=== PATIENT | female | born 1990 | race African-American/Black ===

== ENCOUNTER 2019-01-16 21:49 | Emergency (ER) | payer OTHER ==
[~2019-01-16] VITALS: Ht 160 cm; Wt 53.0 kg
[2019-01-16 21:51] VITALS: Ht 160 cm; Wt 53.0 kg
[2019-01-16] MEDS ORDERED: ONDANSETRON 4 MG INJ IV STA (22:28)
[2019-01-16] MEDS ORDERED: SOD CHLORIDE 0.9% 1,000 ML IV STA (22:28)
[2019-01-16] MEDS ORDERED: KETOROLAC 30 MG INJ IV STA (22:28)
[2019-01-16] MEDS ORDERED: IOHEXOL 300MG/ML 150 ML BTL ONE (23:53)
[2019-01-16] MEDS ORDERED: SOD CHLORIDE 0.9% 100 ML ONE (23:53)
[2019-01-17] MEDS ORDERED: METR500T PO (01:58)
[2019-01-17] MEDS ORDERED: ONDA4TAB14 PO (01:58)
[2019-01-17] MEDS ORDERED: CIPR500T4 PO (01:58)
[2019-01-17 02:48] VITALS: BP 96/56; PULSE 63; RESP 18
--- NOTE | 2019-01-17 03:06 | ERD ---
ER Documentation Chief Complaint Chief Complaint RLQ pain x 2 days denies n/v/d HPI 28-year-old female presenting with lower pelvic pain x2 days. No nausea vomiting or diarrhea. No change in urination. No fevers. Has not taken me dications for symptoms. Denies chest pain or shortness of breath. No vomiting. Denies other medical problems. NKDA. Surgical history denies. Social history denies ROS All systems reviewed and are negative except as per history of present illness. Medications Home Meds Active Scripts Ondansetron (Ondansetron Odt) 4 Mg Tab.rapdis, 4 MG PO Q6H PRN for NAUSEA AND/OR VOMITING, #10 TAB Prov:JD HENRIQUEZ PA-C 01/17/19 Metronidazole* (Flagyl*) 500 Mg Tablet, 500 MG PO TID for 7 Days, TAB Prov:JD HENRIQUEZ PA-C 01/17/19 Ciprofloxacin Hcl* (Ciprofloxacin Hcl*) 500 Mg Tablet, 500 MG PO BID for 7 Days, TAB Prov:JD HENRIQUEZ PA-C 01/17/19 Allergies Allergies: Coded Allergies: No Known Allergy (Unverified , 01/16/19) PMhx/Soc Medical and Surgical Hx: pt denies Medical Hx, pt denies Surgical Hx Hx Miscellaneous Medical Probl: No Hx Alcohol Use: No Hx Substance Use: No Hx Tobacco Use: No Smoking Status: Never smoker FmHx Family History: No diabetes, No coronary disease, No other Physical Exam Vitals Vital Signs Date Temp Pulse Resp B/P (MAP) Pulse Ox O2 O2 Flow FiO2 Time Delivery Rate 01/17/19 97.7 63 18 96/56 (69) 99 02:48 01/16/19 97.9 54 16 121/58 100 21:51 (79) Physical Exam GENERAL: The patient is well-appearing, well-nourished, in no acute distress HEENT: Atraumatic. Conjunctivae are pink. Pupils equal, round, and reactive to light. There is no scleral icterus. Tympanic membranes clear bilaterally. Oropharynx clear. NECK: C-spine is soft and supple. There is no meningismus. There is no cervical lymphadenopathy. CHEST: Clear to auscultation bilaterally. There are no rales, wheezes or rhonchi. HEART: Regular rate and rhythm. No murmurs, clicks, rubs or gallops. ABDOMEN: Normal active bowel sounds. No distention. No organomegaly. Questionable tenderness palpation in the right lower quadrant. Result Diagram: 01/16/19224401/16/192244 Results 24 hrs Laboratory Tests Test 01/16/19 22:45 01/16/19 22:59 White Blood Count 9.9 10^3/ul Red Blood Count 5.13 10^6/ul Hemoglobin 13.6 g/dl Hematocrit 41.5 % Mean Corpuscular Volume 80.9 fl Mean Corpuscular Hemoglobin 26.5 pg Mean Corpuscular Hemoglobin Concent 32.8 g/dl Red Cell Distribution Width 12.9 % Platelet Count 307 10^3/UL Mean Platelet Volume 10.7 fl Immature Granulocytes % 0.300 % Neutrophils % 63.3 % Lymphocytes % 26.4 % Monocytes % 7.7 % Eosinophils % 1.8 % Basophils % 0.5 % Nucleated Red Blood Cells % 0.0 /100WBC Immature Granulocytes # 0.030 10^3/ul Neutrophils # 6.3 10^3/ul Lymphocytes # 2.6 10^3/ul Monocytes # 0.8 10^3/ul Eosinophils # 0.2 10^3/ul Basophils # 0.1 10^3/ul Nucleated Red Blood Cells # 0.0 10^3/ul Urine Color YELLOW Urine Clarity SLIGHTLY CLOUDY Urine pH 8.0 Urine Specific [place] 1.008 Urine Ketones NEGATIVE mg/dL Urine Nitrite NEGATIVE mg/dL Urine Bilirubin NEGATIVE mg/dL Urine Urobilinogen NEGATIVE mg/dL Urine Leukocyte Esterase 1+ Barbara/ul Urine Microscopic RBC 9 /HPF Urine Microscopic WBC 25 /HPF Urine Squamous Epithelial Cells FEW /HPF Urine Bacteria FEW /HPF Urine Hemoglobin 1+ mg/dL Urine Glucose NEGATIVE mg/dL Urine Total Protein NEGATIVE mg/dl Sodium Level 141 mmol/L Potassium Level 4.1 mmol/L Chloride Level 104 mmol/L Carbon Dioxide Level 27 mmol/L Anion Gap 10 Blood Urea Nitrogen 12 mg/dl Creatinine 0.71 mg/dl Est Glomerular Filtrat Rate mL/min > 60 mL/min Glucose Level 93 mg/dl Calcium Level 9.9 mg/dl Total Bilirubin 0.8 mg/dl Direct Bilirubin 0.00 mg/dl Indirect Bilirubin 0.8 mg/dl Aspartate Amino Transf (AST/SGOT) 24 IU/L Alanine Aminotransferase (ALT/SGPT) 22 IU/L Alkaline Phosphatase 62 IU/L Total Protein 8.3 g/dl Albumin 4.6 g/dl Globulin 3.70 g/dl Albumin/Globulin Ratio 1.24 Lipase 126 U/L POC Beta HCG, Qualitative NEGATIVE Current Medications Medications Dose Sig/Ji Start Time Status Last (Trade) Ordered Route PRN Stop Time Admin Dose Reason Admin Sodium 1,000 ml @ Q1H STAT 01/16/19 DC 01/16/19 Chloride 1,000 mls/hr IV 22:28 01/16/19 23:06 23:27 Ondansetron 4 mg ONCE STAT 01/16/19 DC 01/16/19 HCl (Zofran IV 22:28 01/16/19 23:05 Inj) 22:30 Ketorolac 30 mg ONCE STAT 01/16/19 DC 01/16/19 Tromethamine IV 22:28 01/16/19 23:06 (Toradol) 22:30 Sodium 100 ml @ ud STK-MED 01/16/19 DC 01/17/19 Chloride ONCE .ROUTE 23:53 01/16/19 00:11 23:54 Iohexol 150 ml STK-MED 01/16/19 DC 01/17/19 (Omnipaque ONCE .ROUTE 23:53 01/16/19 00:11 300mg/ ml) 23:54 Procedures/MDM DIAGNOSTIC IMAGING REPORT Patient: SUKHWINDER GUZMÁN : 1990 Age: 28 Sex: F MR #: [id number] DOS: 01/16/198 Ordering MD: MIRIAM HENRIQUEZ PA-C Location: [facility] Room/Bed: PROCEDURE: CT ABDOMEN/PELVIS WITHOUT CONTRAST CLINICAL INDICATION: 28-year-old female with abdominal pain. TECHNIQUE: The study was performed utilizing a [employer] VCT 64-slice CT scanner. Direct axial sections were obtained through the abdomen and pelvis without the use of intravenous contrast material. Sagittal and coronal reformations were obtained. One or more of the following dose reduction techn iques were utilized: automated exposure control, adjustment of the mA and/or kV according to patient's size, use of iterative reconstruction technique. DICOM images are available. The images were reviewed on a PACS workstation. CTD/vol = 6.93 mGy; Total Exam DLP = 337.42 mGy.cm. COMPARISON: None. FINDINGS: The lung bases are unremarkable. There is no evidence for significant pleural effusion. The liver has a normal size and contour without focal areas of abnormal density. No intrahepatic nor extrahepatic biliary ductal dilatation is seen. The gallbladder demonstrates no wall thickening nor pericholecystic fluid. No biliary stones are evident. The pancreas is without areas of abnormal attenuation. The spleen is identified and has a normal size without abnormal density. The adrenal glands are unremarkable. The kidneys are without abnormal density. No hydroureteronephrosis nor nephroureterolithiasis is evident. The urinary bladder contains urine. There are mildly dilated loops of fluid-filled small bowel proximally and distally without definite obstruction. There is mod erate retained stool identified within the ascending and transverse colon. The appendix is not clearly visualized however there are no definite periappendiceal inflammatory changes. The uterus is anteflexed. There is no significant free fluid.. The aortoiliac vessels are without aneurysmal dilatati on. Marked thoracolumbar scoliosis is noted. IMPRESSION: 1. Mildly dilated fluid-filled proximal distal loops of small bowel without obstruction which may represent a mild enteritis. 2. Retained stool within the proximal colon. 3. The appendix is not clearly visualized however there are no definite periappendiceal inflammatory changes. Clinical correlation is necessary. 4. Marked thoracolumbar scoliosis. DIAGNOSTIC IMAGING REPORT Patient: SUKHWINDER GUZMÁN : 1990 Age: 28 Sex: F MR #: [id number] DOS: 01/16/198 Ordering MD: MIRIAM HENRIQUEZ PA-C Location: [facility] Room/Bed: PROCEDURE: ULTRASOUND PELVIS CLINICAL INDICATION: 28-year-old female with right pelvic pain. TECHNIQUE: Multiple sonographic images of the pelvis were obtained utilizing a transabdominal and endovaginal technique. The images were reviewed on a PACS workstation. COMPARISON: None. FINDINGS: The uterus is visualized and measures 7.1 x 2.9 x 3.5 cm. The endometrial echo complex is within normal limits and measures 11.4 mm. There is no evidence for free fluid. The right ovary has a normal echotexture and measures 4.2 x 2.2 x 3.9 cm. There is flow identified within the right ovary. The left ovary was not visualized. No adnexal masses are noted. IMPRESSION: Unremarkable pelvic ultrasound however the left ovary was not able to be visualized. MDM: 38-year-old female presenting with lower pelvic pain. Patient has findings consistent with urinary tract infection. She has questionable findings of colitis so we will treat for both with antibiotics. I have low suspicion for appendicitis. I have low suspicion for pelvic abnormality. I have low suspicion for pyelonephritis. Patient is discharged with strict ER precautions and told to follow-up with primary care within 1 to 2 days for close evaluation. Patient is told if symptoms change or worsen to return immediately to the ER. All questions answered at discharge Departure Diagnosis: Primary Impression: UTI (urinary tract infection) Additional Impression: Abdominal pain Condition: Stable Patient Instructions: Abdominal Pain, Understanding Urinary Tract Infections (UTIs) Referrals: [facility] YOU HAVE RECEIVED A MEDICAL SCREENING EXAM AND THE RESULTS INDICATE THAT YOU DO NOT HAVE A CONDITION THAT REQUIRES URGENT TREATMENT IN THE EMERGENCY DEPARTMENT. FURTHER EVALUATION AND TREATMENT OF YOUR CONDITION CAN WAIT UNTIL YOU ARE SEEN IN YOUR DOCTORS OFFICE WITHIN THE NEXT 1-2 DAYS. IT IS YOUR RESPONSIBILITY TO MAKE AN APPOINTMENT FOR FOLOW-UP CARE. IF YOU HAVE A PRIMARY DOCTOR --you should call your primary doctor and schedule an appointment IF YOU DO NOT HAVE A PRIMARY DOCTOR YOU CAN CALL OUR PHYSICIAN REFERRAL HOTLINE AT IF YOU CAN NOT AFFORD TO SEE A PHYSICIAN YOU CAN CHOSE FROM THE FOLLOWING [facility] [address] [facility] [facility] [address] [facility] [facility] [address] [facility] [facility] [address] [facility] [facility] [facility] [facility] [address] [facility]. [facility]. [address] Additional Instructions: FOLLOW UP WITH YOUR PRIMARY CARE PHYSICIAN TOMORROW.Return to this facility if you are not improving as expected. JD HENRIQUEZ PA-C Jan 17, 2019 03:06
== END 2019-01-17 02:49 | disposition home or self-care (01) ==
LOC: FTE 21:49
DX: N39.0 Urinary tract infection, site not specified (principal)
CPT/HCPCS: 36415; 74177; 76856; 80053; 81001; 81025; 83690; 85025; 96361; 96374; 96375; 99285; J1885; J2405; J7030; Q9967